=== PATIENT | male | born 1945 | race Caucasian/White ===

== ENCOUNTER → 2020-04-30 | Outpatient (CLI) | payer OTHER ==
[~2020-04-30] MED LIST: ALPRAZOLAM1 MG PO; ATORVASTATIN CA10 MG PO; CARVEDILOL3.125 MG PO; COQ-10100 MG PO; DOFETILIDE125 MCG PO; ELIQUIS5 MG PO; ENTRESTO 24 MG1 EACH PO; ESTER-C 1,0001 EACH PO; FISH OIL PO; FUROSEMIDE 40 M40 M1 PO; HM CALCIUM-MAG1 EACH PO; NEURIVA PO; OMEPRAZOLE 20 M20 M1 PO; ONE DAILY MEN'1 EACH PO; TYLENOL EXTRA500 MG PO; TYLENOL PM EX-1 EACH PO; [UNRECOGNIZED DRUG - OTHER] PO
== END ==
LOC: LAB 09:16
PROVIDERS: ATTEND Otolaryngology
DX: Z01.812 Encounter for preprocedural laboratory examination (principal); Z20.828 Contact with and (suspected) exposure to other viral communicable diseases

== ENCOUNTER 2020-05-03 07:43 | Day surgery (SDC) | payer OTHER ==
[~2020-05-03] VITALS: Ht 172.7 cm; Wt 59.0 kg
[2020-05-03 08:37] VITALS: BP 108/58
[2020-05-03 13:46] VITALS: BP 108/58
--- NOTE | 2020-05-03 16:22 | O ---
[facility] [place] [address] OPERATIVE REPORT Name: CARA DE LEON Room #: DEP [facility]#: [id number] Admission: 05/03/20 Attend Phys: Forrest Dhillon MD Discharge: 05/03/20 Date of : 41 Report #: [id number] THIS REPORT FOR: cc: Nando Moreno,Forrest Meyrs MD ~ CC: Forrest Moreno DATE OF SERVICE: 05/03/2020 PREOPERATIVE DIAGNOSES: 1. Squamous cell carcinoma of the scalp. 2. Mohs defect of the scalp. POSTOPERATIVE DIAGNOSES: 1. Squamous cell carcinoma of the scalp. 2. Mohs defect of the scalp. PROCEDURES PERFORMED: Left cervical sentinel lymph node biopsy with gamma probe detection. PRIMARY SURGEON: Forrest Dhillon MD NURSE LEADER: None. ANESTHESIA: General with LMA. ESTIMATED BLOOD LOSS: Approximately 5 mL. COMPLICATIONS: None. SPECIMENS: Left cervical sentinel node. 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 He was referred to me for sentinel lymph node evaluation and he was consented for the procedure as listed above. Due to his complex medical history, it took approximately 6-8 weeks to obtain clearances before being able to proceed with surgery. DESCRIPTION OF PROCEDURE: The patient was identified in the preoperative area before being transported to the operating room and placed supine on the operating table. At this point, general anesthesia was induced and a timeout was called to ensure the patient identity and procedure to be performed. First using the gamma probe unsterilely, it was placed on the patient's left neck and [address] [address] OPERATIVE REPORT Name: CARA DE LEON Room #: DEP [facility]#: [id number] Admission: 05/03/20 Attend Phys: Forrest Dhillon MD Discharge: 05/03/20 Date of : 41 Report #: [id number] a probable location of the sentinel lymph node was identified in approximately level 2. The skin was marked in this area and an adjacent relaxed skin tension line natural skin crease was found and marked. Approximately 6 mL of 1% lidocaine 1:100,000 epinephrine solution were injected and allowed to sit for approximately 8-10 minutes time while the patient was prepped and draped in normal sterile fashion and the bed was rotated 90 degrees. Starting first, a #15 blade scalpel was used to sharply incise the skin and subcutaneous tissues down to the level of the sternocleidomastoid muscle. Skin hooks were inserted and blunt dissection identified the anterior edge of the sternocleidomastoid. The great auricular nerve was identified in the superior aspect of the incision and was protected and left in situ. Next, using a scissor, the anterior border of the sternocleidomastoid muscle was freed from its fascial attachments anteriorly and followed superiorly until the posterior belly of the digastric was identified. Dissecting into this deep plane in an oblique fashion, the spinal accessory nerve was identified and preserved. The probable location of the sentinel lymph node was found in level 2A anterior to the spinal accessory nerve, it was resected sharply and placed on the back table, where the gamma probe indicated it to be the probable sentinel lymph node. Several other small chaka-appearing tissues were resected sharply and also placed off with the specimen. The wound bed was then further explored for any abnormalities. The internal jugular vein, the external jugular vein, the spinal accessory, posterior belly of digastric were all identified and no additional abnormalities were noted. Additionally, the inferior aspect of the parotid tail was identified and noted to be normal in appearance. Next, the wound was copiously irrigated with a sterile saline solution followed by layered closure using 4-0 Vicryl suture in the deep fascial layers and the deep dermal layer followed by a running 5-0 Monocryl placed in a subcuticular fashion and the skin covered with Dermabond. This completed the procedure. The patient was returned to anesthesia, where he was successfully and safely reversed and transported to the PACU in stable condition. DISPOSITION: The patient may be discharged after meeting general discharge criteria. He should not engage in any heavy lifting or straining activities. I will see him in 1 week's time for a pathology review and a wound check. They may call our office with any questions. <ELECTRONICALLY SIGNED> By: Forrest Dhillon MD 05/03/20 1622 1332 [id number] Forrest Dhillon MD /nt
--- NOTE | 2020-05-08 12:06 | PATH ---
[facility] [address] [place] [address] PATHOLOGY RPT PROCEDURE Name: HALEYCARA Arnold Room #: DEP [facility] M.R.#: [id number] Admission: 05/03/20 Date of : 41 Discharge: 05/03/20 Report #: [id number] Path Case #: [id number] [facility] Accession Number: [id number] . 01 Material submitted: . lymph node - LEFT CERVICAL SENTINEL LYMPH NODE. Modifiers: left . 01 Clinical history: . SCC, MOHS DEFECT SCALP . 02 Diagnosis: Lymph node (one), left cervical sentinel lymph node, biopsy: - Reactive lymph node; negative for metastatic carcinoma (0/1). (IUV:eleazar; 05/07/2020) MBR 05/07/2020 1219 Local . 02 Comment: The provided history of squamous cell carcinoma is noted. A properly controlled AE1/AE3 immunohistochemical stain is performed on block A1 and it shows no evidence of metastatic carcinoma present. (IUV:bilingual research interviewer; 05/07/2020) . 02 Electronically signed: . Olivia Farris MD, Pathologist NPI- [id number] . 01 Gross description: . The specimen is received in formalin, labeled "Cara Clayton, left cervical sentinel lymph node". Received is a segment of yellow-andrade lobulated tissue measuring 1.5 x 0.8 x 0.5 cm in greatest dimensions. Sectioning reveals a single lymph node measuring 1.3 cm in maximum dimensions. The specimen is bisected and entirely submitted in cassette A1. (CAA; 05/04/2020) QAC/QAC 05/04/2020 1119 Local . 02 Pathologist provided ICD-10: R59.9 . 02 CPT . 850554, U67338 Specimen Comment: A courtesy copy of this report has been sent to [phone] Specimen Comment: [id number] Specimen Comment: Report sent to / Performed at: 01 [place] [address] PATHOLOGY RPT PROCEDURE Name: CARA CLAYTON Room #: DEP [facility] Ailyn#: [id number] Admission: 05/03/20 Date of : 41 Discharge: 05/03/20 Report #: [id number] Path Case #: [id number] [address] [facility] [address], [place], [place] [id number] MD Michel Ferris MD Phone: [phone] Performed at: [address] [id number] MD Olivia Farris MD Phone: [phone]
== END 2020-05-03 14:50 | disposition home or self-care (01) ==
LOC: OR → TBA 07:46 → OR 11:00
PROVIDERS: ATTEND Otolaryngology
DX: R59.0 Localized enlarged lymph nodes (principal); M95.2 Other acquired deformity of head; I11.0 Hypertensive heart disease with heart failure; I50.9 Heart failure, unspecified; E78.5 Hyperlipidemia, unspecified; I48.91 Unspecified atrial fibrillation; F32.9 Major depressive disorder, single episode, unspecified; K21.9 Gastro-esophageal reflux disease without esophagitis; I25.2 Old myocardial infarction; Z98.890 Other specified postprocedural states; Z79.899 Other long term (current) drug therapy; Z95.0 Presence of cardiac pacemaker; Z88.0 Allergy status to penicillin; Z85.828 Personal history of other malignant neoplasm of skin; Z88.8 Allergy status to other drugs, medicaments and biological substances; Z90.49 Acquired absence of other specified parts of digestive tract
CPT/HCPCS: 50010; 50101; 50386; 50417; 51412; 54118; 56526; 57006; 62110; 62900; 70005

== ENCOUNTER → 2020-10-15 | Outpatient (CLI) | payer OTHER ==
[~2020-10-15] MED LIST changes: +AIRBORNE TABLE1 EACH PO; +CIPRO500 M1 PO; +KLOR-CON 10 ER10 MEQ PO; +METOLAZONE 5 MG5 MG PO
== END ==
LOC: LAB 09:59
PROVIDERS: ATTEND Otolaryngology
DX: Z01.812 Encounter for preprocedural laboratory examination (principal); Z20.822 Contact with and (suspected) exposure to COVID-19

== ENCOUNTER 2020-10-18 10:34 | Observation (INO) | payer OTHER ==
[~2020-10-18] VITALS: Ht 172.7 cm; Wt 60.8 kg
--- NOTE | ~2020-10-18 | O ---
[facility] [place] [address] OPERATIVE REPORT Name: CARA DE LEON Room #: 150-3 [facility]..#: [id number] Admission: 10/18/20 Attend Phys: Forrest Dhillon MD Discharge: Date of : 41 Report #: [id number] THIS REPORT FOR: cc: Nando Moreno Steve T. DO Williams, Carson MD ~ DATE OF SERVICE: 10/18/2020 PREOPERATIVE DIAGNOSES: 1. Squamous cell carcinoma vertex scalp, status post Mohs excision. 2. Nonhealing open scalp wound approximately 12 x 14 cm. POSTOPERATIVE DIAGNOSES: 1. Squamous cell carcinoma vertex scalp, status post Mohs excision. 2. Nonhealing open scalp wound approximately 12 x 14 cm. PROCEDURES PERFORMED: 1. Split thickness skin graft to scalp, totaling approximately 12 x 14 cm. 2. Wound bed debridement and preparation. PRIMARY SURGEON: Forrest Dhillon M.D. ASSISTANTS: None. ANESTHESIA: General with LMA. ESTIMATED BLOOD LOSS: Approximately 100 mL. SPECIMENS: None. COMPLICATIONS: None. INDICATIONS FOR THE PROCEDURE: The patient is a 75-year-old male who at last fall underwent Mohs micrographic excision for a scalp lesion, which resulted in a very large full thickness defect down to bare calvarium of the vertex scalp a total of approximately 15 x 15 cm. He originally underwent wound care with xenograft of the porcine derivative and also then saw a digital campaign specialist for the last several months; however, he failed to progress beyond the above named dimensions of his defect. He was then referred back to me for formal reconstruction of this area. Of note, he is a very poor medical candidate; therefore, minimal reconstructive avenues were pursued. He signed consent in the office after being educated about the benefits and risks. DESCRIPTION OF PROCEDURE: The patient was identified in the preoperative area before being transported to the operating room and placed supine on the [address] [address] OPERATIVE REPORT Name: FORRESTCARA Room #: 150-3 [facility]#: [id number] Admission: 10/18/20 Attend Phys: Forrest Dhillon MD Discharge: Date of : 41 Report #: [id number] operating table. At this point, general anesthesia was induced and an LMA was inserted. Time-out was called to ensure patient identity and procedure to be performed. Once all were in agreement, the scalp wound was injected with 1% lidocaine with 1:100,000 epinephrine solution, total of 10 mL around the periphery of the wound. Additionally, the left thigh was prepped and an additional 10 mL of 1% lidocaine with 1:100,000 epinephrine solution were injected along the ventral lateral aspect of the thigh. Next, the patient was prepped and draped in the normal sterile fashion. Starting first, the periphery of the wound bed was debrided to create a fresh bleeding skin edge. This was done using a #10 blade and pickups. Once this was performed, very cautious amount of hemostasis was achieved using monopolar cautery. Next, measurements were taken, which showed that the wound was approximately 12 x 14 cm and I moved down to the patient's left thigh where a Ignacio dermatome was used to harvest an approximately 26 cm long and 7.5 cm wide split-thickness skin graft that was 0.015 inches in thickness. This was harvested in 1 strip and then placed on the back table in a saline bath. Lidocaine 1% with 1:100,000 epinephrine soaked cottonoid sponges were placed on the left leg wound to allow for vasoconstriction. Next, I put the skin graft onto the scalp wound and began running it around its periphery with a 5-0 plain gut suture, making small trimmed adjustments to allow it to fit. Of note, the graft was much longer than the defect was long, so therefore the end was trimmed and the excess was placed adjacent to the initial strip of the skin graft and further affixed into position to the previously placed skin graft and to the skin periphery of the wound edge. A small amount of additional skin graft had to be patched in the posterior aspect of the wound to cover the last bit of the wound. At this point, several pie crusting cuts were made using a tenotomy scissor in all of the skin grafts on scalp to allow for fluid egress. Next, the entire periphery of the wound received a 2-0 silk pop-off sutures to affix a bolster dressing and finally a bolster dressing combining multiple sheets of Xeroform and mineral oil soaked cotton balls were placed over the wound and then fastened into position using the aforementioned 2-0 silk sutures in a battening bolster dressing. At this point, a final check for hemostasis and closure was performed. I was content with how everything came together. At this point, the leg wound was then also dressed with Xeroform and overlaid with Tegaderm dressing. Triple antibiotic ointment was applied to the periphery of the scalp wound and the patient was reversed from anesthesia. Please note that all instrument, sponge and needle counts were correct x 2. He was then transported to the PACU in stable condition. DISPOSITION: The patient will be kept overnight for observation given his medical comorbidities, particularly his cardiac status. I anticipate that he will be discharged home tomorrow morning after waking up from anesthesia and recovery more under the watchful eye of the nursing team. He may resume regular diet and all of his home medications. He has been given prescriptions for pain [facility] [address] [place] [address] OPERATIVE REPORT Name: CARA DE LEON Room #: 150-3 [facility]#: [id number] Admission: 10/18/20 Attend Phys: Forrest Dhillon MD Discharge: Date of : 41 Report #: [id number] medication and antibiotics that he should be using as directed. Wound care should involve he may shower after 24 hours, getting everything wet and soapy. Please leave the left leg dressing in place and please leave the bolster dressing in place and please reapply ointment to its periphery several times per day. He should not engage in any strenuous activity or heavy lifting. I will check up on him in approximately 10 days' time for a postoperative check. By: 1700 1727 Forrest Dhillon MD /nt
[2020-10-18 11:49] LABS: HEMATOCRIT 32.6 % (42.0-52.0); HEMOGLOBIN 11.1 gm/dL (14.0-18.0); MCHC 34.1 g/dL (28.0-37.0); RBC 3.58 mil/uL (4.50-6.00); RDW 15.2 % (10.5-14.5); WBC 6.2 thou/uL (4.0-11.0)
[2020-10-18 11:51] VITALS: BP 99/49
[2020-10-18 12:11] LABS: CALCIUM 8.8 mg/dL (8.5-10.1); CREATININE 1.9 mg/dL (0.7-1.3)
[2020-10-18 12:14] LABS: POTASSIUM 2.9 mmol/L (3.5-5.1)
[2020-10-18 18:00] VITALS: BP 88/43
--- NOTE | 2020-10-18 18:46 | NUR ---
ASSUMED PT CARE UPON TRANSFER TO UNIT AT 1800. PATIENT HAS SCD'S ON. DRESSING TO HEAD IS INTACT. IV TO RIGHT FOREARM. VITAL SIGNS TAKEN. INSTRUCTED ON HOW TO USE CALL LIGHT.
[2020-10-18 19:30] VITALS: BP 90/40
[2020-10-18 20:00] VITALS: BP 92/44
--- NOTE | 2020-10-19 00:31 | NUR ---
ASSUMED PT CARE AT 1900.ADMISSION HX,EDUCATION AND ASSESSMENT COMPLETED.PT'S VS AT START OF SHIFT IN THE LOW HUNDREDS,PT STATED NORMAL FOR HIM.DRSG TO HIS HEAD AND HIS L THIGH C/D/I.NO DRAINAGE NOTED.PT C/O PAIN,MANAGED WITH MED.PT SLEEPING ON HIS BED AT THIS TIME.CALL LIGHT WITHIN REACH.
[2020-10-19 04:18] VITALS: BP 100/40
[2020-10-19 07:17] VITALS: BP 93/42
[2020-10-19 12:46] VITALS: BP 88/42
[2020-10-19 12:51] VITALS: BP 124/45
[2020-10-19 13:32] VITALS: BP 124/45
[2020-10-19 14:13] VITALS: BP 124/45
--- NOTE | 2020-10-19 15:18 | NUR ---
ASSUMED CARE OF PT AT 0700 THIS MORNING. PT HAD SKIN GRAGH FROM LEFT THIGH TO TRANSPLANT ON LEFT SIDE OF HEAD. PT IS A/OX4, SKIN INTACT BESIDES DRESSING ON HEAD AND DERMAGUARD ON LEFT THIGH, W/D/P, NO TENTING. EYES PERRLA, LUNGS CLEAR IN ALL FUCHS, CR<3SEC X4, ABD SOFT NONTENDER W/ ACTIVE BOWEL SOUNDS. PT HAD 2 BM'S MEDIUM AND SOFT/BROWN. IV IN RIGHT FA. ASSESSMENT OTHERWISE UNREMARKABLE. PT AMBULATES WITH SB ASST. CALL LIGHT AND OTHER NEEDS WITHIN REACH. PT IS BEING DISCHARGED TO HOME WITH [facility]. IV WAS DC'D AMD PT WAS TAKEN TO VEHICLE VIA WC.
== END 2020-10-19 16:09 | disposition home or self-care (01) ==
LOC: OR 10:34 → TBA 10:34 → EDSTATUS 13:38 → OR 14:05 → PRE 14:18 → OR 18:14 → 4W 18:14
PROVIDERS: ADMIT Otolaryngology; ATTEND Otolaryngology
DX: C44.42 Squamous cell carcinoma of skin of scalp and neck (principal); S01.00XA Unspecified open wound of scalp, initial encounter; Z88.0 Allergy status to penicillin; Z88.8 Allergy status to other drugs, medicaments and biological substances; Z79.899 Other long term (current) drug therapy; X58.XXXA Exposure to other specified factors, initial encounter; Y93.89 Activity, other specified; Y92.89 Other specified places as the place of occurrence of the external cause; Y99.8 Other external cause status
CPT/HCPCS: 50010; 50386; 50417; 50455; 54016; 56528; 56693